=== PATIENT | female | born 1960 | race Caucasian/White ===

== ENCOUNTER → 2025-06-03 | Outpatient (CLI) | payer MEDICARE, SELFPAY ==
--- NOTE | 2025-06-03 12:46 | XR_ITS ---
Examination: MRI lumbar spine without contrast Date and time of exam: June 03, 2025 1312 hours Comparison August 05, 2023 INDICATIONS: Low back pain years, numbness and paresthesias in the left leg beginning 6 months ago, history lumbar spine surgery Technique: Multiple MRI axial and sagittal sections lumbar spine. Sagittal T2-weighted images, TR 3500, TE 118 T1 weighted transverse sections, TR 688 T8.5, T2-weighted sagittal sections T1 weighted sagittal sections TR 621, TE 30 T2 axial sections, TR 4, 190, TE 84. Findings: Transpedicular lumbar stabilization L3-L5 with magnetic susceptibility artifacts Stable anterolisthesis L4 on L5 No lumbar fracture Diffuse lumbar disc desiccation L5-S1 2 mm central lumbar disc bulge L4-L5 no disc protrusion L3-L4 no disc protrusion L2-L3 12 mm left paracentral subarticular foraminal disc bulge producing severe left L3 ganglionic compression IMPRESSION: L2-3 12 mm left paracentral subarticular foraminal disc bulges producing severe left L3 ganglionic compression
== END | disposition home or self-care (01) ==
LOC: SMRI 12:04
PROVIDERS: PCP Nurse Practitioner Family; Referring Provider Nurse Practitioner Family; Visit Provider Nurse Practitioner Family
DX: M51.360 Other intervertebral disc degeneration, lumbar region with discogenic back pain only (principal); G95.20 Unspecified cord compression; Z98.890 Other specified postprocedural states
CPT/HCPCS: 72148

== ENCOUNTER 2025-10-18 13:07 | Emergency (ER) | payer MEDICARE, SELFPAY ==
[2025-10-18 13:08] VITALS: BMI 31.1
[2025-10-18 13:29] VITALS: BP 133/81; PULSE 112; RESP 17; TEMP 36.9; O2SAT 100
--- NOTE | 2025-10-18 13:54 | PD.EDRME ---
Rapid Medical Screening Exam RME Arrival date/time: 10/18/25 13:07 Chief Complaint: Abdominal Pain Time Seen by Provider: 10/18/25 13:34 Vital signs: Vital Signs Temperature 98.5 F 10/18/25 13:29 Pulse Rate 112 H 10/18/25 13:29 Respiratory Rate 17 10/18/25 13:29 Blood Pressure 133/81 H 10/18/25 13:29 Pulse Oximetry (%) 100 10/18/25 13:29 Oxygen Delivery Method Room Air 10/18/25 13:29 RME Narrative: 64-year-old female with a past medical history of Niesen fundoplication, diabetes, gastritis, hypertension hernia repairs presents to the ER complaining of epigastric pain since last night with nausea. Patient states she does not have the vomiting reflex. Denies any diarrhea or flatus since then. Patient saw her surgeon today who advised that she come to the ER as she has concern for an obstruction. I briefly performed a screening evaluation to initiate work-up and expedite care. Complete history, physical exam, and plan of care is deferred to the provider in the main ED. Exam: Head: Normocephalic, atraumatic. Respiratory: Normal effort. No respiratory distress or accessory muscle use. Neuro: Speech normal. Skin: Warm, dry, normal color. Psych: Pleasant. Normal affect. Cooperative. Clinical Impression: Rule out obstruction
--- NOTE | 2025-10-18 13:56 | XR_ITS ---
Examination: CT abdomen and pelvis without contrast. Coronal 3-D reconstructions. Sagittal 2-D reconstructions. Date and time of exam: 10/18/2025, 2:24 p.m. INDICATION: Periumbilical pain COMPARISON: 06/26/2024 the lung bases are clear. CTDI: vol (mGy): 11.7 DLP: (mGycm): 608 Technique: Axial images of the abdomen have been obtained, 3 mm slice thickness Intravenous contrast material has not been administered. Low dose protocols were performed. One or more of the following dose reduction techniques were used; automated exposure control, adjustment of the mA and/or KV according to patient size, use of iterative reconstruction technique. 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 Liver is borderline enlarged to 19 cm, but otherwise unremarkable. Gallbladder is surgically absent. Pancreas, spleen, bilateral adrenal glands appear normal. Bilateral kidneys appear normal. No evidence of calculi, hydronephrosis or perinephric inflammation. Visualized GI tract is unremarkable. Appendix appears normal. No evidence of right lower quadrant inflammation fat-containing periumbilical hernia without evidence of inflammation or bowel involvement. No evidence of free fluid or intraperitoneal masses. Chronic degenerative changes in the spine with multilevel lumbar fusion. No evidence of hardware failure or loosening. . IMPRESSION: Borderline hepatomegaly with stable chronic eventration of the right hemidiaphragm. Stable fat-containing periumbilical hernia without evidence of inflammation or bowel involvement. .No evidence of appendicitis or urinary tract calculi . Chronic degenerative changes in the spine with stable orthopedic hardware.
[2025-10-18] MEDS: ONDANSETRON ODT 4 MG TABRAP PO (14:08)
[2025-10-18 14:59] LABS: Collection Type, Urine Voided
[2025-10-18 15:04] LABS: Basophils # (Auto) 0.1 Thou/mm3 (0.0-0.2); Basophils % (Auto) 1 % (0-2.5); Eosinophils # (Auto) 0.4 Thou/mm3 (0.0-0.5); Eosinophils % (Auto) 3 % (0-10); Hematocrit 40.3 % (36.0-46.0); Hemoglobin 13.1 g/dL (12.0-16.0); Immature Granulocytes Auto 0.03 Thou/mm3 (0.00-0.00); Lymphocytes # (Auto) 4.2 Thou/mm3 (1.0-4.8); Lymphocytes % (Auto) 36 % (10-50); Mean Corpuscular HGB Conc 32.5 g/dl (31.0-37.0); Mean Corpuscular Hemoglobin 30.0 pg (25.0-35.0); Mean Corpuscular Volume 92 fL (80-100); Monocytes # (Auto) 0.7 Thou/mm3 (0.0-0.8); Monocytes % (Auto) 6 % (0-12); Neutrophils # (Auto) 6.2 Thou/mm3 (1.8-7.7); Neutrophils % (Auto) 53 % (37-80); Nucleated Red Blood Cell # 0.00 Thou/mm3 (0.00-0.00); Nucleated Red Blood Cell % 0 /100 WBC (0); Platelet Count 329 Thou/mm3 (140-440); RDW Standard Deviation 44.8 fL (36.4-46.3); Red Blood Count 4.36 Miln/mm3 (4.00-5.20); White Blood Count 11.6 Thou/mm3 (3.6-11.0)
[2025-10-18 15:06] LABS: Bilirubin,Urine Negative (Negative); Blood,Urine Negative (Negative); Clarity,Urine Clear (Clear/Hazy); Color,Urine Yellow (Lt Yel-Yel); Glucose, Urine Negative (Negative); Ketones,Urine Negative (Negative); Leukocyte Esterase,Urine Positive (Negative); Nitrite,Urine Negative (Negative); PH,Urine 6.5 (5.0-7.0); Protein,Urine Negative (Neg - Trace); RBC,Urine 3 /hpf (0-3); Specific Gravity,Urine 1.018 (1.001-1.035); Squamous Epithelial Cell,Urine < 1 /hpf (0-5); Urobilinogen,Urine Negative mg/dL (0.0-1.0); WBC,Urine 2 /hpf (0-5)
[2025-10-18 15:20] LABS: Alanine Aminotransferase 15 U/L (10-49); Albumin, Serum 4.8 gm/dL (3.4-4.8); Albumin/Globulin Ratio 1.5 (1.2-2.2); Alkaline Phosphatase 98 U/L (46-116); Anion Gap 8 (7-16); Aspartate Amino Transferase 21 U/L (0-34); BUN/Creatinine Ratio 18 Ratio (12-20); Bilirubin,Total 0.3 mg/dL (0.3-1.2); Blood Urea Nitrogen 16 mg/dL (9-23); Calcium 10.1 mg/dL (8.3-10.6); Calcium (Corrected) 10.1 mg/dL (8.5-10.1); Carbon Dioxide 29.8 mMol/L (20.0-31.0); Chloride 103 mMol/L (98-107); Creatinine (Component) 0.9 mg/dL (0.6-1.3); Estimated Creatinine Clearance 76.3 mL/min (>60); Globulin 3.1 gm/dL (2.3-3.5); Glucose 85 mg/dL (74-106); Lipase 65 U/L (12-53); Osmolality,Calculated 281 (275-295); Potassium 4.3 mMol/L (3.4-5.1); Sodium 141 mMol/L (136-145); Total Protein 7.9 gm/dL (5.7-8.2); eGFR > 60 See Note
--- NOTE | 2025-10-18 15:47 | EKG_ITS ---
[facility] Test Date: 2025-10-18 Pat Name: DARIA BRAY Department: Room: - Gender: Female [employer] Cutter: : 1960 Requested By: Jeffrey Boyce Order Number: [id number] Reading MD: Jeffrey Boyce Measurements Intervals [place] Rate: 91 P: 56 ID: [id number] QRS: -10 QRSD: 95 T: 52 QT: 355 QTc: 438 Interpretive Statements SINUS RHYTHM LOW QRS VOLTAGE IN PRECORDIAL LEADS [QRS DEFLECTION < 1.0 mV IN CHEST LEADS] POSSIBLE ANTERIOR MYOCARDIAL INFARCTION , OF INDETERMINATE AGE [30 ms Q WAVE IN V3/V4, OR R < 0.2 mV IN V4] Compared to ECG 05/03/2024 09:20:36 Low QRS voltage now present Sinus arrhythmia no longer present Myocardial infarct finding still present /store/S0/[id number]/[id number].pdf
[2025-10-18 16:04] VITALS: BP 143/80; PULSE 93; RESP 19; O2SAT 97
--- NOTE | 2025-10-18 16:06 | EDNOTE_ITS ---
<Statement entered by Vianey Vasquez MD - 10/18/25 17:38> As co-signing physician, I was present and available for consult prn. I concur with the plan and care as documented by the midlevel provider. ED Abdominal Pain RME/HPI General Chief Complaint: Abdominal Pain Stated complaint: MID ABD PAIN RADIATING TO MID-BACK X1 DAY Time seen by provider: 10/18/25 13:34 Arrival date/time: 10/18/25 13:07 RME / HPI RME / HPI narrative: 64-year-old female with a past medical history of Niesen fundoplication, diabetes, gastritis, peptic ulcer disease, opiate dependence for chronic back pain of L2 radiculopathy on the right side, hypertension hernia repairs presents to the ER complaining of epigastric pain since last night with nausea. Patient states she does not have the vomiting reflex. Denies any diarrhea or flatus since then. Patient saw her surgeon today who advised that she come to the ER as she has concern for an obstruction. I briefly performed a screening evaluation to initiate work-up and expedite care. Complete history, physical exam, and plan of care is deferred to the provider in the main ED. Impression: Rule out obstruction Related Data Home Medications ?Medication ?Instructions ?Recorded ?Confirmed aripiprazole 5 mg tablet (Abilify) 5 mg PO QDAY #0 tab s 08/25/14 05/03/24 gabapentin 800 mg tablet 1,200 mg PO BID #0 tabs 08/0705/03/24 losartan 100 mg tablet 100 tab PO QDAY 11/03/18 oxycodone-acetaminophen 10 mg-325 1 tab PO TID PRN Varsha n 11/03/18 05/03/24 mg tablet amlodipine 5 mg tablet 5 mg PO QDAY 11/08/21 dexlansoprazole 60 mg 60 mg PO QDAY 11/08/2105/03 capsule,biphase delayed release (Dexilant) albuterol sulfate 90 mcg/actuation 1 puff inhalation D AILY PRN 06/17/22 05/03/24 aerosol inhaler Shortness Of Breath celecoxib 200 mg capsule 400 mg PO DAILY 08/23/22 citalopram 40 mg tablet 40 mg PO HS 08/23/22 4 cyclobenzaprine 10 mg tablet 10 mg DAILY 08/23/2204/07 hydroxyzine HCl 25 mg tablet 25 mg PO DAILY 08/23/22 0 05/03/24 nitroglycerin 0.4 mg sublingual 0.4 mg buccal Q10MIN P RN Chest Pain 08/23/22 05/03/24 tablet docusate sodium 100 mg capsule 100 mg PO QDAY 05/03/24 05/03/24 rimegepant 75 mg disintegrating 75 mg PO Q OTHER DAY P RN Migraine 05/03/24 05/03/24 [facility] Headache semaglutide (weight loss) 0.25 0.25 mg subcut QWEEK 05/03/24 mg/0.5 mL subcutaneous pen injector (Hortensiavy) simvastatin 20 mg tablet 20 mg PO QDAY 05/03/2405/03 Previous Rx's ?Medication ?Instructions ?Recorded ondansetron 8 mg disintegrating 8 mg PO Q8H PRN nausea and 05/08/24 tablet vomiting #20 tabs Allergies Allergy/AdvReac Type Severity Reaction Status Date / Time pantoprazole Allergy Severe Hives Verified 10/18/25 13:12 benzoin Allergy Intermediate Blister Verified 10/18/25 13:12 morphine Allergy Mild Vomiting Verified 10/18/25 13:12 adhesive tape Allergy Blister Verified 10/18/25 13:12 latex Allergy Hives Verified 10/18/25 13:12 Course Quality Measures none Orders Category Date Time Status EKG (ED ONLY) *Do not use* NOW Care 10/18/25 15:47 Completed Enema Administration NOW Care 10/18/25 15:44 Active NPO NOW Care 10/18/25 13:56 Active Diet NPO (NOW) Diet 10/18/25 13:[address] abdomen pelvis wo con Stat Exams 10/18/25 13:56 Completed EKG (ED Only) Stat Exams 10/18/25 15:47 Draft CBC Stat Lab 10/18/25 14:45 Completed CMP [Comprehensive Metabolic Panel] Stat Lab 10/18/25 14:45 Completed Lipase Stat Lab 10/18/25 14:45 Completed Troponin I Stat Lab 10/18/25 14:45 Completed Urinalysis Stat Lab 10/18/25 14:45 Completed Urine Culture Stat Lab 10/18/25 14:45 Received Magnesium Citrate Liqd [Citrate of Magnesia Liqd] Med 10/18/25 16:00 Discontinued 300 ml PO X1 ONE Ondansetron Odt [Zofran Odt] Med 10/18/25 13:56 Discontinued 4 mg PO X1 ONE Sodium Chloride 0.9% 1000 ml [Ns] 1,000 ml Med 10/18/25 15:45 Discontinued IV 999 mls/hr Reevaluation(s) Reevaluation #1: At the time of reassessment prior to discharge, the patient remains alert and oriented ?3 with GCS 15. Vitals are normal, pain is controlled, and the patient is tolerating oral intake without nausea or vomiting. The patient is agreeable to discharge and verbalizes understanding of the diagnosis, studies, treatment plan, medications (including side effects/precautions), and strict ER return precautions as discussed in the ED. All concerns were addressed, and the patient is comfortable with the plan. Time: 17:06 Vital Signs Vital signs: Vital Signs Temperature 98.5 F 10/18/25 13:29 Pulse Rate 112 H 10/18/25 13:29 Respiratory Rate 17 10/18/25 13:29 Blood Pressure 133/81 H 10/18/25 13:29 Pulse Oximetry (%) 100 10/18/25 13:29 Oxygen Delivery Method Room Air 10/18/25 13:29 PROCEDURES: EKG Interpretation #1: Date of EK10/18/25 Interpretation: Interpreted by me EKG Impression: No acute ST-T changes Additional EKG comment: EKG unchanged from 05/03/2024, no ST elevation, 89, normal sinus rhythm, poor R wave progression Abdominal Pain MDM MDM Narrative MDM Narrative:: MDM: The patient presents with abdominal pain without definite explanation found on evaluation today. I am concerned that patient is constipated as the etiology of her symptoms likely secondary to your chronic opiate dependence. WBC count is minimally elevated 11.6 with immature granulocyte number minimally elevated 0.03 otherwise no severe metabolic electrolyte abnormality, lipase minimally elevated 65. UA unremarkable however, there are no signs of peritonitis or other life-threatening or serious etiology. Plan for fecal evacuation with mag citrate, Fleet enema. After patient's enema I offered her a disimpaction and a rectal exam however she states she would prefer not doing this at this time and wants to go home I advised her if she does not stool by tomorrow morning she needs to return to the ER for reevaluation. I considered admission; however, given negative work up and imaging, admission is not indicated. Serial abdominal exams were benign throughout the ED stay, and the patient tolerated oral intake without difficulty. The inherent uncertainty with undifferentiated abdominal pain was emphasized, and strict return precautions were provided. The patient has been instructed that this presentation could represent an early acute abdominal process. The plan is for mandatory re-evaluation within 24 hours and immediate return for worsening, persistence, or change in symptoms. The patient may follow up with their primary care provider or return to the ED as appropriate. The patient appears stable for discharge at this time. Patient data External records reviewed:: None Clinical information provided by:: patient Social determinants that could affect healthcare access:: none Patient has the following chronic illnesses:: As noted How is presenting disease/condition affected by chronic disease/condition?: exacerbated by Evaluation data The following diagnostics were reviewed and interpreted by me:: other (specify) Lab and/or radiology exams considered but not ordered:: Additional Labs and radiology considered, but not ordered as they were not clinically indicated at this time. Interpretation Summary: As noted Medications / Prescriptions Medications or Prescriptions considered but not ordered:: I ordered medications based on the patient?s clinical needs and assessment, as documented in the chart. For medications not prescribed, they were not indicated for the patient's current condition, and I determined they were unnecessary at this time to avoid potential risks or complications. Medication administrations:: Medication Administration History Discontinued Medications Sodium Chloride (Ns) 1,000 mls @ 999 mls/hr IV .Q1H1M ONE Stop: 10/18/25 16:45 Magnesium Citrate (Magnesium Citrate 300 Ml Btl) 300 ml PO X1 ONE Stop: 10/18/25 16:01 Last Admin: 10/18/25 16:26 Dose: 300 ml Documented By: Ondansetron HCl (Ondansetron Odt 4 Mg Tabrap) 4 mg PO X1 ONE; Protocol Stop: 10/18/25 13:57 Last Admin: 10/18/25 14:08 Dose: 4 mg Documented By: As noted Consultations Consultation(s) initiated? (list below): Yes Consultation #1 (Physician, Specialty, Details): Dr. Weeks, general surgery, he advised patient appears to have constipation on CAT scan no emergent surgical process patient okay for discharge she can follow- up outpatient Time: 16:08 Diagnosis Differential diagnosis abdominal pain: abdominal pain, gastroenteritis and pancreatitis Most likely diagnosis given after review of the tests above:: Constipation however this is abdominal pain of unclear etiology Admission Indicated Admission indicated?: not indicated Explain why admission is indicated or not indicated:: Escalation of care including admission/observation considered but I decided to discharge because based on the overall clinical presentation, and after consideration of the patient's course in the emergency department and plan for outpatient management, I believe that neither further observation nor inpatient care is required at this time. Admission Request Was there a request for admission?: No Disposition Plan Disposition Plan: Discharge Discharge Attestation Discharge Attestation: The patient and all family members were given an opportunity to ask questions and understood the discharge instructions. Discharge instructions specifically effects, indications for sooner follow up or return to the emergency department, and the expected course of current diagnosis. Patient condition: Stable Discharge Plan Plan Patient Disposition: HOME (Self Care) Patient condition on transfer: Stable Prescriptions/Referrals Prescriptions/Med Rec: No Action gabapentin 800 MG tablet 1,200 mg PO BID Qty: 0 aripiprazole [Abilify] 5 MG tablet 5 mg PO QDAY Qty: 0 amlodipine 5 mg tablet 5 mg PO QDAY Patient Comments: TAKE ONE TABLET BY MOUTH EVERY DAY FOR BLOOD PRESSURE dexlansoprazole [Dexilant] 60 mg capsule,biphase delayed releas 60 mg PO QDAY Patient Comments: TAKE ONE CAPSULE BY MOUTH EVERY DAY FOR HEARTBURN GASTRIC ACIDITY losartan 100 mg Tablet 100 tab PO QDAY oxycodone-acetaminophen 10-325 mg Tablet 1 tab PO TID PRN (Reason: Pain) albuterol sulfate 90 mcg/actuation HFA aerosol inhaler 1 puff INHALATION DAILY PRN (Reason: Shortness Of Breath) Patient Comments: INHALE 1 PUFF BY MOUTH EVERY 4 HOURS NEEDED celecoxib 200 mg capsule 400 mg PO DAILY cyclobenzaprine 10 mg tablet 10 mg DAILY citalopram 40 mg tablet 40 mg PO HS Patient Comments: TAKE ONE TABLET BY MOUTH AT BEDTIME nitroglycerin 0.4 mg tablet, sublingual 0.4 mg BUCCAL Q10MIN PRN (Reason: Chest Pain) hydroxyzine HCl 25 mg tablet 25 mg PO DAILY simvastatin 20 mg Tablet 20 mg PO QDAY docusate sodium 100 mg Capsule 100 mg PO QDAY Nurtec ODT 75 mg Tablet,Disintegrating 75 mg PO Q OTHER DAY PRN (Reason: Migraine Headache) Wegovy 0.25 mg/0.5 mL Pen Injector 0.25 mg SUBCUT QWEEK Rx Instructions: administer weeks 1 through 4 of therapy ondansetron 8 mg tablet,disintegrating 8 mg PO Q8H PRN (Reason: nausea and vomiting) Qty: 20 0RF Referrals: Gala Ramirez FNP [Primary Care Provider] - In 1 week Problem List Clinical Impression: Abdominal pain, Constipation Patient/Caregiver Discharge Instructions Education Materials: Abdominal Pain, ED Constipation (Adult) Additional Instructions: Follow up with your primary medical doctor within 48 hours. Return to the Emergency Room immediately for any new, worsening, continuing symptoms or any concerns at all. Return to the Emergency Room within 48 hours if you are unable to follow up with your primary medical doctor within 48 hours. Avoid taking her opiates if you can. Take MiraLAX [id number]. Print Language: Swedish Stand Alone Forms: Deisi Award Info., Patient Portal Info Letter PA/LINESPERSON Supervising Physician TARA/MULUGETA Supervising Physician: Dr. Vasquez
[2025-10-18] MEDS: MAGNESIUM CITRATE 300 ML BTL PO (16:26)
[2025-10-18 17:02] LABS: Troponin I < 0.002 ng/mL (0.0-0.045)
== END 2025-10-18 17:32 | disposition home or self-care (01) ==
PROVIDERS: Emergency Provider Physician Assistant; PCP Nurse Practitioner Family
DX: K59.00 Constipation, unspecified (principal); R11.2 Nausea with vomiting, unspecified
CPT/HCPCS: 36415; 74176; 80053; 81001; 83690; 84484; 85025; 87077; 87086; 87186; 93005; 99283; Q0162; A9270

== ENCOUNTER 2025-10-19 14:23 | Emergency (ER) | payer MEDICARE, MEDICAID, SELFPAY ==
[2025-10-19 14:24] VITALS: BMI 31.1
--- NOTE | 2025-10-19 15:13 | PC.NURSE ---
CALLED FOR PT FROM [facility], NO ANSWERX1 @ [phone]
[2025-10-19 15:19] VITALS: BP 144/81; PULSE 124; RESP 16; TEMP 37.3; O2SAT 95
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
[2025-10-19] MEDS: NALOXEGOL OXALATE 25 MG TABLET (NON-FORMULARY) PO (15:56)
== END 2025-10-19 16:00 | disposition home or self-care (01) ==
LOC: SERX 16:13
PROVIDERS: Emergency Provider Emergency Medicine; PCP Nurse Practitioner Family
DX: K59.03 Drug induced constipation (principal); T40.2X5A Adverse effect of other opioids, initial encounter; R94.31 Abnormal electrocardiogram [ECG] [EKG]
CPT/HCPCS: 99281; A9270